=== PATIENT | male | born 1975 | race Caucasian/White ===

== ENCOUNTER 2019-10-28 18:40 | Emergency (ER) | payer OTHER ==
[2019-10-28] MEDS ORDERED: Adacel (T-DAP) 0.5 ML SYRINGE ONE (18:51)
[2019-10-28] MEDS ORDERED: Bacitracin 1 PK ONE (18:56)
== END 2019-10-28 19:04 | disposition home or self-care (01) ==
LOC: NAV ERS 18:40
DX: S51.832A Puncture wound without foreign body of left forearm, initial encounter (principal); Z87.891 Personal history of nicotine dependence; W26.8XXA Contact with other sharp object(s), not elsewhere classified, initial encounter
CPT/HCPCS: 90471; 90715